=== PATIENT | male | born 1930 | race Caucasian/White ===

== ENCOUNTER 2016-09-10 07:25 | Emergency (ER) | payer OTHER, MEDICARE ==
[2016-09-10 07:52] LABS: ABSOLUTE EOSINOPHILS # (AUTO) 0.3 10^3/uL (0.0-0.6); ABSOLUTE LYMPHOCYTES (AUTO) 1.1 10^3/uL (0.5-4.7); ABSOLUTE MONOCYTES (AUTO) 0.5 10^3/uL (0.1-1.4); ABSOLUTE NEUT (AUTO) 2.7 10^3/uL (1.7-8.2); BASOPHILS % (AUTO) 0.8 % (0-2); EOSINOPHILS % (AUTO) 6.3 % (0-6); HEMATOCRIT 38.7 % (37.9-51.0); HEMOGLOBIN 13.1 g/dL (13.5-17.0); HGB HCT DIFFERENCE 0.6; MEAN CORPUSCULAR HEMOGLOBIN 30.3 pg (27.0-33.4); MEAN CORPUSCULAR HGB CONC 33.9 g/dL (32.0-36.0); MEAN CORPUSCULAR VOLUME 90 fl (80-97); MONOCYTES % (AUTO) 9.9 % (3-13); RED BLOOD COUNT 4.32 10^6/uL (4.35-5.55); RED CELL DISTRIBUTION WIDTH 14.7 % (11.5-14.0); WHITE BLOOD COUNT 4.7 10^3/uL (4.0-10.5)
[2016-09-10 07:56] LABS: PROTHROMBIN TIME 13.2 SEC (11.4-15.4)
[2016-09-10 07:57] LABS: PARTIAL THROMBOPLASTIN TIME 26.5 SEC (23.5-35.8)
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
[2016-09-10 09:05] VITALS: BP 152/75
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
--- NOTE | 2016-09-10 10:47 | EKG REPORT ---
SEVERITY:- ABNORMAL ECG - VENTRICULAR-PACED COMPLEXES FIRST DEGREE AV BLOCK NONSPECIFIC IVCD WITH LAD LVH WITH SECONDARY REPOLARIZATION ABNORMALITY : Confirmed by: Bashir Correa 10-Sep-2016 10:46:34
[2016-09-10] MEDS ORDERED: LIDOCAINE 1%/EPINEPHRINE INJ 20 ML VIAL INJ ONE ×2 (14:07)
== END 2016-09-10 10:11 | disposition short-term general hospital (02) ==
LOC: ER 07:25
PROC: 0HQ0XZZ Repair Scalp Skin, External Approach (ICD-10-PCS; principal; 2016-09-10)
DX: S12.100A Unspecified displaced fracture of second cervical vertebra, initial encounter for closed fracture (principal); S81.811A Laceration without foreign body, right lower leg, initial encounter; S06.6X9A Traumatic subarachnoid hemorrhage with loss of consciousness of unspecified duration, initial encounter; R40.2412 Glasgow coma scale score 13-15, at arrival to emergency department; R51 Headache; V87.7XXA Person injured in collision between other specified motor vehicles (traffic), initial encounter
CPT/HCPCS: 36415; 70450; 71260; 72125; 74177; 85025; 85610; 85730; 93005; 93010; 99291

== ENCOUNTER 2017-06-22 14:29 | Emergency (ER) | payer OTHER, MEDICARE ==
--- NOTE | 2017-06-22 15:24 | ER Document Report ---
ED Medical Screen (RME) - General Chief Complaint: High Blood Pressure Stated Complaint: DIZZY,BLOOD PRESSURE ISSUES Time Seen by Provider: 06/22/17 14:44 Mode of Arrival: Ambulatory Information source: Patient Notes: 87-year-old male history of hypertension pacemaker presents with complaints of dizziness. Patient notes blood pressure has been elevated lately denies any chest pain shortness breath difficulty breathing I have greeted and performed a rapid initial assessment of this patient. A comprehensive ED assessment and evaluation of the patient, analysis of test results and completion of the medical decision making process will be conducted by additional ED providers. PHYSICAL EXAMINATION: GENERAL: Well-appearing, well-nourished and in no acute distress. HEAD: Atraumatic, normocephalic. EYES: Pupils equal round extraocular movements intact, conjunctiva are normal. Legally blind ENT: Nares patent difficulty hearing NECK: Normal range of motion LUNGS: No respiratory distress Musculoskeletal: Normal range of motion NEUROLOGICAL: Normal speech, normal gait. PSYCH: Normal mood, normal affect. SKIN: Warm, Dry, normal turgor, no rashes or lesions noted. TRAVEL OUTSIDE OF THE [place] IN LAST 30 DAYS: No - Related Data Allergies/Adverse Reactions: Sulfa (Sulfonamide Antibiotics) Allergy (Verified 06/22/17 14:43) Past Medical History - Social History Frequency of alcohol use: None Drug Abuse: None - Past Medical History Cardiac Medical History: Reports: Hx Coronary Artery Disease, Hx Heart Attack, Hx Hypertension Endocrine Medical History: Reports: Hx Diabetes Mellitus Type 2 Renal/ Medical History: Denies: Hx Peritoneal Dialysis Past Surgical History: Reports: Hx Cardiac Surgery - 4 stents placed, Hx Coronary Stent Physical Exam - Vital signs Vitals: Temp Pulse Resp BP Pulse Ox 97.9 F 55 L 16 172/80 H 99 06/22/17 14:38 06/22/17 14:38 06/22/17 14:38 06/22/17 14:38 06/22/17 14:38 Course - Vital Signs Vital signs: Temp Pulse Resp BP Pulse Ox 97.9 F 55 L 16 172/80 H 99 06/22/17 14:38 06/22/17 14:38 06/22/17 14:38 06/22/17 14:38 06/22/17 14:38
--- NOTE | 2017-06-22 16:11 | RADIOLOGY REPORT (SQ) ---
EXAM DESCRIPTION: CT HEAD WITHOUT COMPLETED DATE/TIME: 06/22/2017 3:59 pm REASON FOR STUDY: htn dizziness on eliquis COMPARISON: 09/10/2016. TECHNIQUE: Axial images acquired through the brain without intravenous contrast. Images reviewed wi th bone, brain and subdural windows. Images stored on PACS. All CT scanners at this facility use dose modulation, iterative reconstruction, and/or weight based d osing when appropriate to reduce radiation dose to as low as reasonably achievable (ALARA). [facility]: Dose Right [facility]: CareDose [facility]: Dose Right [facility]: Teradose 4D [facility]: Multigig RADIATION DOSE: CT Rad equipment meets quality standard of care and radiation dose reduction techniq ues were employed. CTDIvol: 64.6 mGy. DLP: 1163 mGy-cm. mGy. LIMITATIONS: None. FINDINGS: VENTRICLES: Normal size and contour. CEREBRUM: No masses. No hemorrhage. No midline shift. No evidence for acute infarction. Normal gra y/white matter differentiation. No areas of low density in the white matter. CEREBELLUM: No masses. No hemorrhage. No alteration of density. No evidence for acute infarction. EXTRAAXIAL SPACES: No fluid collections. No masses. ORBITS AND GLOBE: No intra- or extraconal masses. Normal contour of globe without masses. CALVARIUM: No fracture. PARANASAL SINUSES: No fluid or mucosal thickening. SOFT TISSUES: No mass or hematoma. OTHER: No other significant finding. IMPRESSION: NORMAL BRAIN CT WITHOUT CONTRAST. EVIDENCE OF ACUTE STROKE: NO. COMMENT: Quality ID # 436: Final reports with documentation of one or more dose reduction techniques (e.g., Automated exposure control, adjustment of the mA and/or kV according to patient size, use of iterative reconstruction technique) TECHNICAL DOCUMENTATION: JOB ID: [id number] [employer]- All Rights Reserved Reading location - IP/workstation name: [email or web address]
[2017-06-22 16:21] LABS: ABSOLUTE EOSINOPHILS # (AUTO) 0.3 10^3/uL (0.0-0.6); ABSOLUTE LYMPHOCYTES (AUTO) 1.2 10^3/uL (0.5-4.7); ABSOLUTE MONOCYTES (AUTO) 0.5 10^3/uL (0.1-1.4); ABSOLUTE NEUT (AUTO) 2.9 10^3/uL (1.7-8.2); BASOPHILS % (AUTO) 0.7 % (0-2); EOSINOPHILS % (AUTO) 5.3 % (0-6); HEMOGLOBIN 14.1 g/dL (13.5-17.0); LYMPHOCYTES % (AUTO) 24.4 % (13-45); MEAN CORPUSCULAR HEMOGLOBIN 29.9 pg (27.0-33.4); MEAN CORPUSCULAR HGB CONC 33.7 g/dL (32.0-36.0); MEAN CORPUSCULAR VOLUME 89 fl (80-97); MONOCYTES % (AUTO) 9.9 % (3-13); PLATELET COUNT 150 10^3/uL (150-450); RED BLOOD COUNT 4.72 10^6/uL (4.35-5.55); SEGMENTED NEUTROPHILS % (AUTO) 59.7 % (42-78); TOTAL CELLS COUNTED % (AUTO) 100 %; WHITE BLOOD COUNT 4.9 10^3/uL (4.0-10.5)
--- NOTE | 2017-06-22 16:24 | RADIOLOGY REPORT (SQ) ---
EXAM DESCRIPTION: CHEST SINGLE VIEW COMPLETED DATE/TIME: 06/22/2017 4:07 pm REASON FOR STUDY: dizzy COMPARISON: CT dated 09/10/2016. Chest x-ray dated 06/11/2015. EXAM PARAMETERS: NUMBER OF VIEWS: One view. TECHNIQUE: Single frontal radiographic view of the chest acquired. RADIATION DOSE: NA LIMITATIONS: None. FINDINGS: LUNGS AND PLEURA: Chronic elevation of the left hemidiaphragm. No opacities, masses or pn eumothorax. No pleural effusion. MEDIASTINUM AND HILAR STRUCTURES: No masses. Contour normal. HEART AND VASCULAR STRUCTURES: Heart normal in size. Normal vasculature. BONES: No acute findings. Degenerative changes in the shoulders. HARDWARE: Pacemaker. Coronary artery stent. OTHER: No other significant finding. IMPRESSION: NO ACUTE RADIOGRAPHIC FINDING IN THE CHEST. TECHNICAL DOCUMENTATION: JOB ID: [id number] [employer]- All Rights Reserved Reading location - IP/workstation name: [email or web address]
[2017-06-22 16:34] LABS: ALANINE AMINOTRANSFERASE 27 U/L (21-72); ALKALINE PHOSPHATASE 66 U/L (38-126); ANION GAP 8 (5-19); ASPARTATE AMINO TRANSFERASE 18 U/L (17-59); BILIRUBIN,DIRECT 0.4 mg/dL (0.0-0.4); BILIRUBIN,TOTAL 0.7 mg/dL (0.2-1.3); BLOOD UREA NITROGEN 17 mg/dL (7-20); CALCIUM 9.6 mg/dL (8.4-10.2); CARBON DIOXIDE 30 mmol/L (22-30); CHLORIDE 103 mmol/L (98-107); CREATINE KINASE 29 U/L (55-170); GLUCOSE 106 mg/dL (75-110); SODIUM 141.4 mmol/L (137-145); TOTAL PROTEIN 6.6 g/dL (6.3-8.2)
[2017-06-22 16:47] LABS: CREATINE KINASE MB 1.41 ng/mL (<4.55); TROPONIN I < 0.012 ng/mL
[2017-06-22] MEDS ORDERED: MECLIZINE HCL 25 MG TABLET PO ONE (18:31)
--- NOTE | 2017-06-22 18:32 | ER Document Report ---
ED General - General Chief Complaint: High Blood Pressure Stated Complaint: DIZZY,BLOOD PRESSURE ISSUES Time Seen by Provider: 06/22/17 14:44 Mode of Arrival: Ambulatory TRAVEL OUTSIDE OF THE [place] IN LAST 30 DAYS: No - HPI Patient complains to provider of: Dizziness elevated blood pressure Notes: Patient coming in for transient today feeling unwell becoming dizzy states after which he took his blood pressure which is elevated with systolics in the 190 [facility] for further evaluation. Patient resting company upon my evaluation states currently he is a symptomatic. Denies any fevers chills nausea vomiting chest pain abdominal pain. Patient states they have prior to arrival he did feel normal. Patient states compliance with his blood pressure medication. - Related Data Allergies/Adverse Reactions: Sulfa (Sulfonamide Antibiotics) Allergy (Verified 06/22/17 14:43) Past Medical History - General Information source: Patient - Social History Smoking Status: Never Smoker Frequency of alcohol use: None Drug Abuse: None Family History: Reviewed & Not Pertinent Patient has suicidal ideation: No Patient has homicidal ideation: No - Past Medical History Cardiac Medical History: Reports: Hx Coronary Artery Disease, Hx Heart Attack, Hx Hypertension Endocrine Medical History: Reports: Hx Diabetes Mellitus Type 2 Renal/ Medical History: Denies: Hx Peritoneal Dialysis Past Surgical History: Reports: Hx Cardiac Surgery - 4 stents placed, pacemaker , Hx Coronary Stent Review of Systems - Review of Systems Constitutional: No symptoms reported EENT: No symptoms reported Cardiovascular: Dizziness - Feeling unwell Respiratory: No symptoms reported Gastrointestinal: No symptoms reported Genitourinary: No symptoms reported Male Genitourinary: No symptoms reported Musculoskeletal: No symptoms reported Skin: No symptoms reported Hematologic/Lymphatic: No symptoms reported Neurological/Psychological: No symptoms reported -: Yes All other systems reviewed and negative Physical Exam - Vital signs Vitals: Temp Pulse Resp BP Pulse Ox 97.9 F 55 L 16 172/80 H 99 06/22/17 14:38 06/22/17 14:38 06/22/17 14:38 06/22/17 14:38 06/22/17 14:38 Interpretation: Normal - General General appearance: Appears well, Alert - HEENT Head: Normocephalic, Atraumatic Eyes: Normal Pupils: PERRL - Respiratory Respiratory status: No respiratory distress Chest status: Nontender Breath sounds: Normal Chest palpation: Normal Notes: Pacemaker to the left upper chest - Cardiovascular Rhythm: Regular Heart sounds: Normal auscultation Murmur: No - Abdominal Inspection: Normal Distension: No distension Bowel sounds: Normal Tenderness: Nontender Organomegaly: No organomegaly - Back Back: Normal, Nontender - Extremities General upper extremity: Normal inspection, Nontender, Normal color, Normal ROM , Normal temperature General lower extremity: Normal inspection, Nontender, Normal color, Normal ROM , Normal temperature, Normal weight bearing. No: Erica's sign - Neurological Neuro grossly intact: Yes Cognition: Normal Orientation: AAOx4 [place] Coma Scale Eye Opening: Spontaneous [place] Coma Scale Verbal: Oriented [place] Coma Scale Motor: Obeys Commands [place] Coma Scale Total: 15 Speech: Normal Motor strength normal: LUE, RUE, LLE, RLE Sensory: Normal - Psychological Associated symptoms: Normal affect, Normal mood - Skin Skin Temperature: Warm Skin Moisture: Dry Skin Color: Normal Course - Re-evaluation Re-evalutation: 06/22/17 19:04 The patient has dizziness as the patient's dizziness is not suggestive of pulmonary embolus, cardiac ischemia, aortic dissection, or other serious etiology. Given the extremely low risk of these diagnoses further testing and evaluation for these possibilities does not appear to be indicated at this time. The patient has been instructed to return if the symptoms worsen or change in any way. 06/22/17 19:05 Patient been asymptomatic during his time here in ER. Laboratory studies not reveal any critical pathology. Patient now states he had episodes of dizziness in the past and was on meclizine. Offered to get the patient meclizine here patient otherwise does not have any critical etiology will be discharged home. - Vital Signs Vital signs: Temp Pulse Resp BP Pulse Ox 97.9 F 55 L 16 172/80 H 99 06/22/17 14:38 06/22/17 14:38 06/22/17 14:38 06/22/17 14:38 06/22/17 14:38 - Laboratory Result Diagrams: 06/22/17 15:45 06/22/17 15:45 Laboratory results interpreted by me: 06/22/17 06/22/17 15:45 15:45 RDW 15.0 H Creatine Kinase 29 L Discharge - Discharge Clinical Impression: Transient dizziness Hypertension Qualifiers: Hypertension type: unspecified Qualified Code(s): I10 - Essential (primary) hypertension Condition: Good Disposition: HOME, SELF-CARE Instructions: Dizziness ([facility]), High Blood Pressure ([facility]) Additional Instructions: Your laboratory studies chest x-ray head CT did not show any critical pathology. Please follow-up with your primary care physician return to ER symptoms worsen. Your blood pressure does continue to be slightly elevated I would recommend following up with your primary care physician to see if he would like to adjust her medications he required no emergent adjustment of your medications at this time. I will give you a few tablets of Antivert or meclizine to help out with any nausea or any other dizziness that she may have. Prescriptions: Meclizine HCl [Antivert 25 mg Tablet] 25 mg PO TID PRN #21 tablet PRN Reason: Forms: Return to Work
--- NOTE | 2017-06-22 18:59 | EKG REPORT ---
SEVERITY:- ABNORMAL ECG - ATRIAL-SENSED VENTRICULAR-PACED RHYTHM : Confirmed by: Domenico Barba MD 22-Jun-2017 18:59:04
[2017-06-22 19:12] VITALS: BP 147/77
== END 2017-06-22 19:25 | disposition home or self-care (01) ==
LOC: ER 14:29
DX: I10 Essential (primary) hypertension (principal); Z79.899 Other long term (current) drug therapy; R42 Dizziness and giddiness; I25.10 Atherosclerotic heart disease of native coronary artery without angina pectoris; I25.2 Old myocardial infarction; E11.9 Type 2 diabetes mellitus without complications; Z95.5 Presence of coronary angioplasty implant and graft; Z95.0 Presence of cardiac pacemaker; Z88.2 Allergy status to sulfonamides
CPT/HCPCS: 36415; 70450; 71045; 80053; 82550; 82553; 84484; 85025; 93005; 93010; 99285

== ENCOUNTER 2018-01-17 12:46 | Emergency (ER) | payer OTHER, MEDICARE ==
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
[2018-01-17 16:33] VITALS: BP 164/75
--- NOTE | 2018-01-17 18:16 | EKG REPORT ---
SEVERITY:- ABNORMAL ECG - ATRIAL-SENSED VENTRICULAR-PACED RHYTHM : Confirmed by: Diana Larios MD 17-Jan-2018 18:15:59
== END 2018-01-17 16:18 | disposition home or self-care (01) ==
LOC: ER 12:46
DX: M54.2 Cervicalgia (principal); M54.5 Low back pain; V59.50XA Passenger in pick-up truck or van injured in collision with unspecified motor vehicles in traffic accident, initial encounter; I10 Essential (primary) hypertension; Z95.0 Presence of cardiac pacemaker; Z90.49 Acquired absence of other specified parts of digestive tract; Z88.2 Allergy status to sulfonamides; I25.2 Old myocardial infarction
CPT/HCPCS: 70450; 71045; 72125; 72128; 72131; 87493; 93005; 93010; 99285

== ENCOUNTER 2019-09-20 11:22 | Emergency (ER) | payer OTHER, MEDICARE ==
--- NOTE | 2019-09-20 12:26 | ER Document Report ---
ED Medical Screen (RME) - General Chief Complaint: Abscess Stated Complaint: WOUND CHECK Time Seen by Provider: 09/20/19 12:25 Mode of Arrival: Ambulatory Information source: Patient Notes: 89-year-old male presented to ED for an abscess on his buttocks. He states he has had sores on both buttocks for about a year and that bubble developed about 6 months ago and they have been trying to clear that but they have not been able to so the [facility] sent him over to the hospital to have this treated in the emergency room. He is alert oriented respirations regular and unlabored speaking in full sentences. He is mildly hard of hearing but he is able to answer all questions appropriately. I have greeted and performed a rapid initial assessment of this patient. A comprehensive ED assessment and evaluation of the patient, analysis of test results and completion of medical decision making process will be conducted by an additional ED providers. TRAVEL OUTSIDE OF THE [place] IN LAST 30 DAYS: No - Related Data Allergies/Adverse Reactions: Penicillins Allergy (Verified 09/20/19 12:22) Sulfa (Sulfonamide Antibiotics) Allergy (Verified 09/20/19 12:22) Past Medical History - Past Medical History Cardiac Medical History: Reports: Hx Coronary Artery Disease, Hx Heart Attack, Hx Hypertension Endocrine Medical History: Reports: Hx Diabetes Mellitus Type 2 Renal/ Medical History: Denies: Hx Peritoneal Dialysis Past Surgical History: Reports: Hx Cardiac Surgery - 4 stents placed, pacemaker, Hx Coronary Stent Physical Exam - Vital signs Vitals: Temp Pulse Resp BP Pulse Ox 98.0 F 70 19 95/56 L 98 09/20/19 11:30 09/20/19 11:30 09/20/19 11:09/20/19 11:30 09/20/19 11:30 Course - Vital Signs Vital signs: Temp Pulse Resp BP Pulse Ox 98.0 F 70 19 95/56 L 98 09/20/19 11:30 09/20/19 11:30 09/20/19 11:30 09/20/19 11:30 09/20/19 11:30
--- NOTE | 2019-09-20 14:13 | ER Document Report ---
ED General - General Chief Complaint: Abscess Stated Complaint: WOUND CHECK Time Seen by Provider: 09/20/19 12:25 Mode of Arrival: Ambulatory Notes: 89-year-old man presents to the emergency department with a complaint of an area on his bottom which has been giving him difficulties for an extended period he has been seen as an outpatient and started on a steroid cream. He states that he was told not to use it though not and there is no breakdown of skin at this time. He complains of pain and discomfort in the area. TRAVEL OUTSIDE OF THE [place] IN LAST 30 DAYS: No - Related Data Allergies/Adverse Reactions: Penicillins Allergy (Verified 09/20/19 12:22) Sulfa (Sulfonamide Antibiotics) Allergy (Verified 09/20/19 12:22) Past Medical History - General Information source: Patient - Social History Smoking Status: Former Smoker Chew tobacco use (# tins/day): No Frequency of alcohol use: None Drug Abuse: None Family History: Reviewed & Not Pertinent Patient has homicidal ideation: No - Past Medical History Cardiac Medical History: Reports: Hx Coronary Artery Disease, Hx Heart Attack, Hx Hypertension Endocrine Medical History: Reports: Hx Diabetes Mellitus Type 2 Renal/ Medical History: Denies: Hx Peritoneal Dialysis Past Surgical History: Reports: Hx Cardiac Surgery - 4 stents placed, pacemaker, Hx Coronary Stent Review of Systems - Review of Systems Notes: Constitutional: Negative for fever. HENT: Negative for sore throat. Eyes: Negative for visual changes. Cardiovascular: Negative for chest pain. Respiratory: Negative for shortness of breath. Gastrointestinal: Negative for abdominal pain, vomiting or diarrhea. Genitourinary: Negative for dysuria. Musculoskeletal: Negative for back pain. Skin: + Dry skin, + tenderness buttock region Neurological: Negative for headaches, weakness or numbness. 10 point ROS negative except as marked above and in HPI. Physical Exam - Vital signs Vitals: Temp Pulse Resp BP Pulse Ox 98.0 F 70 19 95/56 L 98 09/20/19 11:30 09/20/19 11:30 09/20/19 11:30 09/20/19 11:30 09/20/19 11:30 - Notes Notes: PHYSICAL EXAMINATION: Physical Exam: General: Frail elderly man in no acute distress HEENT: NC/AT, pupils equal round and reactive to light, MM moist,nares clear, oropharynx clear, airway patent Neck: supple, no adenopathy, no masses. Good range of motion Lungs: clear, no wheezing, no rales no rhonchi CVS: Regular rate and rhythm no murmur gallop or rub Abdomen: Soft, active, nontender, no masses, no hepatosplenomegaly Ext: No edema, clubbing or cyanosis. Neuro: Alert and responsive, moving all 4 extremities on command, cranial nerves intact, no focal findings Skin: Skin is intact in the buttock region, decreased musculature and thin bony area. Dry skin with some exfoliative change, no breakdown PSYCH: Normal mood, normal affect. Course - Vital Signs Vital signs: Temp Pulse Resp BP Pulse Ox 98.0 F 70 19 95/56 L 98 09/20/19 12:23 09/20/19 11:30 09/20/19 11:30 09/20/19 11:30 09/20/19 11:30 Discharge - Discharge Clinical Impression: Sacral pain, Dry skin dermatitis Condition: Good Disposition: HOME, SELF-CARE Additional Instructions: You are seen in the emergency department today and diagnosed with pain in the sacral area with dry skin dermatitis. It is suggested that you use Eucerin plus topical lotion twice daily. Use a cushion to protect the bony area from further inflammation. You may use Tylenol or ibuprofen for pain. Please follow-up with your primary care doctor as needed Your symptoms are worsening or if you have other concerns you may return to the emergency department HOME CARE INSTRUCTIONS & INFORMATION: Thank you for choosing us for your medical needs. We hope you're satisfied with the care you received. After you leave, you must properly care for your problem and, at the same time, observe its progress. Any condition can change. Some illnesses can change rapidly over hours or days. If your condition worsens, return to the Emergency Department or see your physician promptly. ABOUT YOUR X-RAYS AND EKG'S: If you had an EKG or X-rays taken, they have been read by the Emergency Physician. The X-rays and EKG's will also be read by a Radiologist or Operations Planner within 24 hours. If discrepancies are noted, you will be notified by telephone. Please be certain the ED has a correct telephone number & address where you can be reached. Also, realize that some fractures or abnormalities do not show up on initial X-rays. If your symptoms continue, see your physician. ABOUT YOUR LABORATORY TEST: If you had laboratory tests, the results have been reviewed by the Emergency Physician. Some test results (for example cultures) may not be available for several days. You will be contacted if any test result shows you need additional treatment. Please be certain the ED has a correct telephone number and address where you can be reached. ABOUT YOUR MEDICATIONS: You will receive instructions on how to take your medicine on the prescription label you receive. Additional information may be provided by the Pharmacy. If you have questions afterwards, call the ED for clarification or further instructions. Some prescribed medications may cause drowsiness. Do not perform tasks such as driving a car or operating machinery without consulting your Pharmacist. If you feel you need a refill of pain medication, your condition will need re-evaluation. Please do not call for a refill of any medication. ABOUT YOUR SIGNATURE: Signature of this document acknowledges to followin. Understanding that you received emergency treatment and that you may be released before al medical problems are known or treated. Please be certain the ED has a correct phone number & address where you can be reached. 2. Acknowledgement that you will arrange for follow-up care as recommended. 3. Authorization for the Emergency Physician to provide information to your follow-up Physician in order to maximize your care. AT ANY TIME, IF YOUR SYMPTOMS CHANGE SIGNIFICANTLY OR WORSEN OR YOU DEVELOP NEW SYMPTOMS, RETURN TO THE EMERGENCY DEPARTMENT IMMEDIATELY FOR RE-EVALUATION. OUR GOAL IS TO PROVIDE EXCELLENT MEDICAL CARE! WE HOPE THAT WE HAVE MET YOUR EXPECTATIONS DURING YOUR EMERGENCY DEPARTMENT VISIT AND THAT YOU FEEL YOU HAVE RECEIVED EXCELLENT CARE!
[2019-09-20 14:46] VITALS: BP 113/62
== END 2019-09-20 14:46 | disposition home or self-care (01) ==
LOC: ER 11:22
DX: M53.3 Sacrococcygeal disorders, not elsewhere classified (principal); L30.8 Other specified dermatitis; L85.3 Xerosis cutis; Z87.891 Personal history of nicotine dependence; Z88.0 Allergy status to penicillin; Z88.2 Allergy status to sulfonamides; I25.10 Atherosclerotic heart disease of native coronary artery without angina pectoris; I25.2 Old myocardial infarction; I10 Essential (primary) hypertension; E11.9 Type 2 diabetes mellitus without complications
CPT/HCPCS: 99283

== ENCOUNTER 2019-10-26 14:40 | Emergency (ER) | payer OTHER, MEDICARE ==
--- NOTE | 2019-10-26 14:59 | ER Document Report ---
ED Medical Screen (RME) - General Chief Complaint: Constipation Stated Complaint: CONSTIPATION/DECUBITUS ULCER Time Seen by Provider: 10/26/19 14:45 Primary Care Provider: MYLES MURPHY [Primary Care Provider] - Follow up as needed Mode of Arrival: Wheelchair Information source: Patient Notes: 89-year-old male patient presenting to the emergency department with concern for possible decubitus ulcer and possible constipation. Patient denies any nausea, vomiting, fever or chills. His daughter reports that he has an open sore near the rectum. Patient appears well, nontoxic, alert, answering questions. I have greeted and performed a rapid initial assessment of this patient. A comprehensive ED assessment and evaluation of the patient, analysis of test results and completion of the medical decision making process will be conducted by additional ED providers. I have specifically instructed the patient or family members with the patient to immediately return to any nursing staff should anything change in the patient's condition or with their chief complaint. TRAVEL OUTSIDE OF THE [place] IN LAST 30 DAYS: No - Related Data Allergies/Adverse Reactions: Penicillins Allergy (Verified 09/20/19 12:22) Sulfa (Sulfonamide Antibiotics) Allergy (Verified 09/20/19 12:22) Past Medical History - Past Medical History Cardiac Medical History: Reports: Hx Coronary Artery Disease, Hx Heart Attack, Hx Hypertension Endocrine Medical History: Reports: Hx Diabetes Mellitus Type 2 Renal/ Medical History: Denies: Hx Peritoneal Dialysis Past Surgical History: Reports: Hx Cardiac Surgery - 4 stents placed, pacemaker, Hx Coronary Stent Physical Exam - Vital signs Vitals: Temp Pulse Resp BP Pulse Ox 98.7 F 70 18 94/53 L 99 10/26/19 14:43 10/26/19 14:43 10/26/19 14:43 10/26/19 14:43 10/26/19 14:43 Course - Vital Signs Vital signs: Temp Pulse Resp BP Pulse Ox 98.7 F 70 18 94/53 L 99 10/26/19 14:43 10/26/19 14:43 10/26/19 14:43 10/26/19 14:43 10/26/19 14:43 Doctor's Discharge - Discharge Referrals: [facility] [Primary Care Provider] - Follow up as needed
--- NOTE | 2019-10-26 15:38 | RADIOLOGY REPORT (SQ) ---
EXAM DESCRIPTION: KUB/ABDOMEN (SINGLE VIEW) IMAGES COMPLETED DATE/TIME: 10/26/2019 3:28 pm REASON FOR STUDY: eval for constipation COMPARISON: None. NUMBER OF VIEWS: One view. TECHNIQUE: Supine radiographic image of the abdomen acquired. LIMITATIONS: None. FINDINGS: BOWEL GAS PATTERN: Normal bowel gas pattern. No dilated loops. CONSTIPATION: No CALCIFICATIONS: No suspicious calcifications. SOFT TISSUES: No gross mass or suggestion of organomegaly. HARDWARE: None in the abdomen. BONES: Diffuse degenerative disc disease. OTHER: No other significant finding. IMPRESSION: NO RADIOGRAPHIC EVIDENCE FOR ACUTE ABDOMINAL DISEASE. No constipation. TECHNICAL DOCUMENTATION: JOB ID: [id number] [employer]- All Rights Reserved Reading location - IP/workstation name: [email or web address]
[2019-10-26 15:53] LABS: ABSOLUTE EOSINOPHILS # (AUTO) 0.2 10^3/uL (0.0-0.6); ABSOLUTE LYMPHOCYTES (AUTO) 1.1 10^3/uL (0.5-4.7); ABSOLUTE MONOCYTES (AUTO) 0.4 10^3/uL (0.1-1.4); ABSOLUTE NEUT (AUTO) 4.2 10^3/uL (1.7-8.2); BASOPHILS % (AUTO) 0.8 % (0-2); EOSINOPHILS % (AUTO) 3.9 % (0-6); HEMATOCRIT 37.6 % (37.9-51.0); HEMOGLOBIN 12.9 g/dL (13.5-17.0); LYMPHOCYTES % (AUTO) 18.3 % (13-45); MEAN CORPUSCULAR HEMOGLOBIN 32.9 pg (27.0-33.4); MEAN CORPUSCULAR HGB CONC 34.2 g/dL (32.0-36.0); MEAN CORPUSCULAR VOLUME 96 fl (80-97); MONOCYTES % (AUTO) 6.9 % (3-13); PLATELET COUNT 174 10^3/uL (150-450); SEGMENTED NEUTROPHILS % (AUTO) 70.1 % (42-78); TOTAL CELLS COUNTED % (AUTO) 100 %; WHITE BLOOD COUNT 5.9 10^3/uL (4.0-10.5)
[2019-10-26 16:34] LABS: APPEARANCE,URINE SLIGHTLY-CLOUDY; BILIRUBIN,URINE NEGATIVE (NEGATIVE); COLOR,URINE AMBER; GLUCOSE, URINE NEGATIVE (NEGATIVE); KETONES,URINE NEGATIVE (NEGATIVE); LEUKOCYTE ESTERASE,URINE NEGATIVE (NEGATIVE); NITRITE,URINE NEGATIVE (NEGATIVE); PROTEIN,URINE 30 mg/dL (NEGATIVE); URINE SPECIFIC GRAVITY 1.024
[2019-10-26 18:01] LABS: ALBUMIN 3.8 g/dL (3.5-5.0); ALKALINE PHOSPHATASE 61 U/L (38-126); ANION GAP 7 (5-19); ASPARTATE AMINO TRANSFERASE 21 U/L (17-59); BILIRUBIN,DIRECT 0.1 mg/dL (0.0-0.4); BILIRUBIN,TOTAL 0.9 mg/dL (0.2-1.3); BLOOD UREA NITROGEN 21 mg/dL (7-20); CALCIUM 9.9 mg/dL (8.4-10.2); CARBON DIOXIDE 24 mmol/L (22-30); CHLORIDE 106 mmol/L (98-107); GLUCOSE 146 mg/dL (75-110); POTASSIUM 3.9 mmol/L (3.6-5.0); TOTAL PROTEIN 6.4 g/dL (6.3-8.2)
--- NOTE | 2019-10-26 19:18 | ER Document Report ---
ED General - General Chief Complaint: Abscess Stated Complaint: CONSTIPATION/DECUBITUS ULCER Time Seen by Provider: 10/26/19 14:45 Primary Care Provider: KATHERINE,MYLES [Primary Care Provider] - Follow up as needed Mode of Arrival: Wheelchair TRAVEL OUTSIDE OF THE [place] IN LAST 30 DAYS: No - HPI Notes: Patient is an 89-year-old male who presents to the emergency department for evaluation of a few complaints. He has had a sore on his sacral area for about a year. He states that he became more concerned about it over the last several days because he felt "an obstruction" when he tried to move his bowels. The patient admits he has not been eating much over the last several days. He states he tried to have a bowel movement this morning and pushed more firmly. He states he felt a lump around his rectal area. He states he was able to push it back in. He denies any pain there. His daughter is also there, concerned about the wound on his sacral area that is now open. He said no fevers or chills. No nausea or vomiting. He is not dizzy. He has had no other changes in medications. He is actually been using steroid ointment on the wound. - Related Data Allergies/Adverse Reactions: Penicillins Allergy (Verified 09/20/19 12:22) Sulfa (Sulfonamide Antibiotics) Allergy (Verified 09/20/19 12:22) Home Medications: Atorvastatin. Metformin. Potassium Chloride. Tylenol. Lasix. Allopurinol. Carvedilol. Eliquis. Tamsulosin. Loratadine Past Medical History - General Information source: Patient, Relative - Social History Smoking Status: Never Smoker Family History: Reviewed & Not Pertinent - Past Medical History Cardiac Medical History: Reports: Hx Coronary Artery Disease, Hx Heart Attack, H x Hypercholesterolemia, Hx Hypertension Endocrine Medical History: Reports: Hx Diabetes Mellitus Type 2 Renal/ Medical History: Denies: Hx Peritoneal Dialysis Past Surgical History: Reports: Hx Cardiac Surgery - 4 stents placed, pacemaker, Hx Coronary Stent Review of Systems - Review of Systems Gastrointestinal: See HPI Skin: See HPI -: Yes All other systems reviewed and negative Physical Exam - Vital signs Vitals: Temp Pulse Resp BP Pulse Ox 98.7 F 70 18 94/53 L 99 10/26/19 14:43 10/26/19 14:43 10/26/19 14:43 10/26/19 14:43 10/26/19 14:43 - Notes Notes: There is a very pleasant 89-year-old male appears younger than her stated age, no acute distress. Head is normocephalic and atraumatic, pupils are equal and round. Oral mucosa is moist. Heart is regular rate and rhythm, lungs are clear station bilaterally. Abdomen soft, nontender, active bowel sounds. Extremities without cyanosis or clubbing. Examination of the sacral area yields an 8 x 10 cm area of erythema consistent with a stage I decubitus ulcer. On his left gluteal region, overlying the ischium, is a 1 x 2 cm open area consistent with an early stage II decubitus ulcer. He has a mild amount of abrasion noted from frequent bandage changes. Rectal exam was performed with KATJA Mcintosh, present in the room. He has what appears to be normal rectal tone, but digital rectal exam is not performed. He has a small skin tag consistent with a minor external hemorrhoid. Otherwise no signs of bleeding or significant fissure is noted. Course - Re-evaluation Re-evalutation: 10/26/19 19:15 Patient presents to the emergency department for evaluation. He had laboratory investigations and abdominal imaging. Abdominal imaging failed to reveal any signs of obstruction or significant constipation. The patient has not been eating much, therefore he does not have to have a bowel movement. His daughter states that he becomes obsessed with the idea of needing to have a bowel movement every day. I explained to him that this was not necessary, decreased oral intake would lead to decreased defecation, the patient seems satisfied with that answer. I did do a visual inspection of the patient's rectum. He has a small skin tag and appears to have good rectal tone. I did not do a digital rectal exam, as I am concerned he may have had a small rectal prolapse versus prolapsed hemorrhoid. I do not see any active signs of bleeding, and do not want to cause the patient more discomfort. I encouraged him to not try to strain to have a bowel movement if he does not need to have one. He voiced understanding. Otherwise he was given appropriate wound care instructions for his sacral decubitus ulcer. He is absolutely not to add steroid treatment to this. He is to return to the ED with worsening. 10/26/19 19:19 Please note, when I was notified that the patient's blood pressure was borderline low, I placed an order for him to be put on the monitor. The patient is not dizzy. He has no concerns of weakness. He has a normal renal function. He is not revealing any signs of infection on exam. I am not inclined to place him on a monitor or do any further intervention for this blood pressure at this time. - Vital Signs Vital signs: Temp Pulse Resp BP Pulse Ox 98.7 F 70 18 94/53 L 99 10/26/19 14:43 10/26/19 14:43 10/26/19 14:43 10/26/19 14:43 10/26/19 14:43 - Laboratory Result Diagrams: 10/26/19 15:14 10/26/19 14:54 Laboratory results interpreted by me: 10/26/19 10/26/19 10/26/19 14:54 15:14 16:05 RBC 3.90 L Hgb 12.9 L Hct 37.6 L RDW 15.0 H BUN 21 H Glucose 146 H Urine Protein 30 H Urine Urobilinogen 2.0 H Discharge - Discharge Clinical Impression: Sacral decubitus ulcer Qualifiers: Pressure injury stage: stage 2 Qualified Code(s): L89.152 - Pressure ulcer of sacral region, stage 2 Condition: Stable Disposition: HOME, SELF-CARE Instructions: Decubitus Ulcer ([facility]) Additional Instructions: You are not constipated. There is no signs of significant constipation. If you do not eat much, you will not have to have bowel movements. Please do not strain to try to pass her bowel movements. Otherwise, wound care is instructed in regards to your sacral decubitus ulcer. Please try to relieve pressure on this area as much as possible. Return to the emergency department for worsening or new concerning symptoms. Otherwise, follow-up with primary care this week. Referrals: [facility] [Primary Care Provider] - Follow up as needed
[2019-10-26 19:39] VITALS: BP 127/50
== END 2019-10-26 19:49 | disposition home or self-care (01) ==
LOC: ER 14:40
DX: L89.152 Pressure ulcer of sacral region, stage 2 (principal); K59.00 Constipation, unspecified; Z88.0 Allergy status to penicillin; Z88.2 Allergy status to sulfonamides; Z79.84 Long term (current) use of oral hypoglycemic drugs; Z79.899 Other long term (current) drug therapy; Z79.01 Long term (current) use of anticoagulants
CPT/HCPCS: 36415; 74018; 80053; 81001; 85025; 87086; 99283

== ENCOUNTER 2020-03-27 23:10 | Emergency (ER) | payer OTHER, MEDICARE ==
[2020-03-27 23:24] VITALS: BP 124/59
== END 2020-03-27 23:43 | disposition left against medical advice (07) ==
LOC: ER 23:10
DX: Z53.21 Procedure and treatment not carried out due to patient leaving prior to being seen by health care provider (principal)

== ENCOUNTER 2020-04-16 06:55 | Emergency (ER) | payer OTHER, MEDICARE ==
[2020-04-16 11:13] LABS: ABSOLUTE EOSINOPHILS # (AUTO) 0.1 10^3/uL (0.0-0.6); ABSOLUTE LYMPHOCYTES (AUTO) 0.4 10^3/uL (0.5-4.7); ABSOLUTE MONOCYTES (AUTO) 0.3 10^3/uL (0.1-1.4); ABSOLUTE NEUT (AUTO) 3.5 10^3/uL (1.7-8.2); BASOPHILS % (AUTO) 0.5 % (0-2); EOSINOPHILS % (AUTO) 2.5 % (0-6); HEMATOCRIT 34.7 % (37.9-51.0); LYMPHOCYTES % (AUTO) 9.4 % (13-45); MEAN CORPUSCULAR HEMOGLOBIN 32.5 pg (27.0-33.4); MEAN CORPUSCULAR HGB CONC 34.6 g/dL (32.0-36.0); MEAN CORPUSCULAR VOLUME 94 fl (80-97); MONOCYTES % (AUTO) 7.9 % (3-13); PLATELET COUNT 123 10^3/uL (150-450); RED BLOOD COUNT 3.69 10^6/uL (4.35-5.55); RED CELL DISTRIBUTION WIDTH 15.4 % (11.5-14.0); SEGMENTED NEUTROPHILS % (AUTO) 79.7 % (42-78); TOTAL CELLS COUNTED % (AUTO) 100 %; WHITE BLOOD COUNT 4.4 10^3/uL (4.0-10.5)
[2020-04-16 11:29] LABS: ALBUMIN 3.4 g/dL (3.5-5.0); ALKALINE PHOSPHATASE 68 U/L (38-126); ASPARTATE AMINO TRANSFERASE 22 U/L (17-59); BILIRUBIN,DIRECT 0.2 mg/dL (0.0-0.4); BILIRUBIN,TOTAL 1.7 mg/dL (0.2-1.3); BLOOD UREA NITROGEN 18 mg/dL (7-20); CALCIUM 9.2 mg/dL (8.4-10.2); GLUCOSE 117 mg/dL (75-110); POTASSIUM 4.2 mmol/L (3.6-5.0); TOTAL PROTEIN 5.9 g/dL (6.3-8.2)
[2020-04-16 11:34] LABS: ANION GAP 6 (5-19); CARBON DIOXIDE 29 mmol/L (22-30); CHLORIDE 103 mmol/L (98-107)
--- NOTE | 2020-04-16 11:48 | RADIOLOGY REPORT (SQ) ---
EXAM DESCRIPTION: KUB/ABDOMEN (SINGLE VIEW) IMAGES COMPLETED DATE/TIME: 04/16/2020 11:19 am REASON FOR STUDY: constipation COMPARISON: None. NUMBER OF VIEWS: One view. TECHNIQUE: Supine radiographic image of the abdomen acquired. LIMITATIONS: None. FINDINGS: BOWEL GAS PATTERN: Abundant gas and fecal material throughout nondilated colon. CALCIFICATIONS: No suspicious calcifications. SOFT TISSUES: No gross mass or suggestion of organomegaly. HARDWARE: None in the abdomen. BONES: No acute fracture. No worrisome bone lesions. OTHER: No other significant finding. IMPRESSION: Mild fecal retention. TECHNICAL DOCUMENTATION: JOB ID: [id number] 2010 [employer]- All Rights Reserved Reading location - IP/workstation name: [email or web address]
--- NOTE | 2020-04-16 11:51 | ER Document Report ---
ED GI/ - General Chief Complaint: Diarrhea Stated Complaint: DIARRHEA Time Seen by Provider: 04/16/20 11:08 [facility]: [facility] [[facility]] - Follow up as needed Mode of Arrival: Medic Information source: Patient Notes: 89-year-old male presents to the emergency department with a history of constipation and also prior history of impaction. He has been taking multiple [id number] bowel stimulants apparently had explosive diarrhea/bowel movements 2 days ago at home and is now having some diarrheal episodes. Patient's daughter states that he is scheduled appointment with GI but that he needs to have something else done. Patient states that he had had a bowel movement in 7 or 8days feels he needs something else to help his bowels. TRAVEL OUTSIDE OF THE [place] IN LAST 30 DAYS: No - Related Data Allergies/Adverse Reactions: Penicillins Allergy (Verified 09/20/19 12:22) Sulfa (Sulfonamide Antibiotics) Allergy (Verified 09/20/19 12:22) Home Medications: metformin, atorvastatin, omeprazole, allopurinol, KCL, flomax, coreg, loratadine, lasix, brimonidine gtt, dorolamide, latanoprost Past Medical History - Social History Smoking Status: Former Smoker Family History: Reviewed & Not Pertinent - Past Medical History Cardiac Medical History: Reports: Hx Coronary Artery Disease, Hx Heart Attack, Hx Hypercholesterolemia, Hx Hypertension Endocrine Medical History: Reports: Hx Diabetes Mellitus Type 2 Renal/ Medical History: Denies: Hx Peritoneal Dialysis Past Surgical History: Reports: Hx Cardiac Surgery - 4 stents placed, pacemaker, Hx Coronary Stent Review of Systems - Review of Systems Notes: Constitutional: Negative for fever. HENT: Negative for sore throat. Eyes: Negative for visual changes. Cardiovascular: Negative for chest pain. Respiratory: Negative for shortness of breath. Gastrointestinal: See HPI Genitourinary: Negative for dysuria. Musculoskeletal: Negative for back pain. Skin: Negative for rash. Neurological: Negative for headaches, weakness or numbness. 10 point ROS negative except as marked above and in HPI. Physical Exam - Vital signs Vitals: Temp Pulse Resp BP Pulse Ox 98.3 F 61 18 95/43 L 100 04/16/20 07:15 04/16/20 07:15 04/16/20 07:15 04/16/20 07:15 04/16/20 07:15 - Notes Notes: PHYSICAL EXAMINATION: Physical Exam: General: Elderly male in no acute distress HEENT: NC/AT, pupils equal round and reactive to light, MM moist,nares clear, oropharynx clear, airway patent Neck: supple, no adenopathy, no masses. Good range of motion Lungs: clear, no wheezing, no rales no rhonchi CVS: Regular rate and rhythm no murmur gallop or rub Abdomen: Soft, active, nontender, no masses, no hepatosplenomegaly Ext: No edema, clubbing or cyanosis. Neuro: Alert and responsive, moving all 4 extremities on command, cranial nerves intact, no focal findings Skin: Intact no open lesions, no rash Course - Re-evaluation Re-evalutation: 04/16/20 14:41 Patient with a long history of constipation and secondary GI related symptoms. Apparently seen by the [facility] fingernail sculpturer and no further evaluation was performed according to the daughter. She was told that if he had a cancer or some other significant pathology that no intervention would be performed because he is 89 years old. Patient has been taken [id number]-uvmkmuy laxative because he feels like there is a bubble in the rectal area that will come out. CT scan was performed on the abdomen and pelvis today with IV contrast only and the patient was noted to have proctocolitis circumferential thickening in the mucosa of the distal colon. You were treated with a course of antibiotics, Cipro 250 mg twice daily and Flagyl 500 mg twice a day for full 10 days. Also begin Colace 100 mg 1 tablet twice daily and Dulcolax 1 daily. He will follow- up with gastroenterology. - Vital Signs Vital signs: Temp Pulse Resp BP Pulse Ox 98.3 F 61 18 95/43 L 100 04/16/20 07:15 04/16/20 07:15 04/16/20 07:15 04/16/20 07:15 04/16/20 07:15 - Laboratory Results Result Diagrams: 04/16/20 11:00 04/16/20 11:00 Laboratory Results Interpreted: 04/16/20 04/16/20 04/16/20 11:00 11:00 12:02 RBC 3.69 L Hgb 12.0 L Hct 34.7 L RDW 15.4 H Plt Count 123 L Lymph % (Auto) 9.4 L Absolute Lymphs (auto) 0.4 L Seg Neutrophils % 79.7 H Glucose 117 H Total Bilirubin 1.7 H Total Protein 5.9 L Albumin 3.4 L Urine Ketones TRACE H Critical Laboratory Results Reviewed: No Critical Results - Radiology Results Radiology Results Interpreted: 04/16/20 14:49 K[facility] X-Ray 04/16/20 10:46 IMPRESSION: Mild fecal retention. Abdomen/Pelvis CT 04/16/20 11:48 IMPRESSION: Circumferential rectal wall thickening with surrounding inflammatory change suggestive of proctocolitis. Moderate stool in the colon which can be seen with constipation. No bowel obstruction. Critical Radiology Results Reviewed: No Critical Results Discharge - Discharge Clinical Impression: Proctocolitis Constipation Qualifiers: Constipation type: unspecified constipation type Qualified Code(s): K59.00 - Constipation, unspecified Condition: Good Disposition: HOME, SELF-CARE Instructions: Constipation (OM) Additional Instructions: You were seen in the emergency department with history of bowel difficulties constipation and also irritation. You have been given a prescription for antibi otics Cipro 250 mg twice daily and Flagyl 500 mg twice daily for 10-day course. Please continue to push fluids, increase fiber, and begin Colace 100 mg 1 tablet twice daily and Senokot 1 dose daily. Please continue to increase your fluid intake while taking these medications. If your symptoms are getting worse or you have other concerns you may return to the emergency department for further evaluation and treatment Follow-up with the fingernail sculpturer,Dr Gonzalez, information is listed. HOME CARE INSTRUCTIONS & INFORMATION: Thank you for choosing us for your medical needs. We hope you're satisfied with the care you received. After you leave, you must properly care for your problem and, at the same time, observe its progress. Any condition can change. Some illnesses can change rapidly over hours or days. If your condition worsens, return to the Emergency Department or see your physician promptly. ABOUT YOUR X-RAYS AND EKG'S: If you had an EKG or X-rays taken, they have been read by the Emergency Physician. The X-rays and EKG's will also be read by a Radiologist or Publication Editor within 24 hours. If discrepancies are noted, you will be notified by telephone. Please be certain the ED has a correct telephone number & address where you can be reached. Also, realize that some fractures or abnormalities do not show up on initial X-rays. If your symptoms continue, see your physician. ABOUT YOUR LABORATORY TEST: If you had laboratory tests, the results have been reviewed by the Emergency Physician. Some test results (for example cultures) may not be available for several days. You will be contacted if any test result shows you need additional treatment. Please be certain the ED has a correct telephone number and address where you can be reached. ABOUT YOUR MEDICATIONS: You will receive instructions on how to take your medicine on the prescription label you receive. Additional information may be provided by the Pharmacy. If you have questions afterwards, call the ED for clarification or further instructions. Some prescribed medications may cause dr [email or web address]. Do not perform tasks such as driving a car or operating machinery without consulting your Pharmacist. If you feel you need a refill of pain medication, your condition will need re-evaluation. Please do not call for a refill of any medication. ABOUT YOUR SIGNATURE: Signature of this document acknowledges to followin. Understanding that you received emergency treatment and that you may be released before al medical problems are known or treated. Please be certain the ED has a correct phone number & address where you can be reached. 2. Acknowledgement that you will arrange for follow-up care as recommended. 3. Authorization for the Emergency Physician to provide information to your follow-up Physician in order to maximize your care. AT ANY TIME, IF YOUR SYMPTOMS CHANGE SIGNIFICANTLY OR WORSEN OR YOU DEVELOP NEW SYMPTOMS, RETURN TO THE EMERGENCY DEPARTMENT IMMEDIATELY FOR RE-EVALUATION. OUR GOAL IS TO PROVIDE EXCELLENT MEDICAL CARE! WE HOPE THAT WE HAVE MET YOUR EXPECTATIONS DURING YOUR EMERGENCY DEPARTMENT VISIT AND THAT YOU FEEL YOU HAVE RECEIVED EXCELLENT CARE! Prescriptions: Ciprofloxacin HCl 250 mg PO BID #20 tablet Metronidazole [Flagyl 500 mg Tablet] 500 mg PO BID #20 tablet Referrals: [facility] [Primary Care Provider] - Follow up as needed SHAMA GONZALEZ MD [ACTIVE STAFF] - Follow up as needed
[2020-04-16 12:36] LABS: APPEARANCE,URINE CLEAR; BILIRUBIN,URINE NEGATIVE (NEGATIVE); COLOR,URINE YELLOW; GLUCOSE, URINE NEGATIVE (NEGATIVE); KETONES,URINE TRACE mg/dL (NEGATIVE); LEUKOCYTE ESTERASE,URINE NEGATIVE (NEGATIVE); NITRITE,URINE NEGATIVE (NEGATIVE); PROTEIN,URINE NEGATIVE (NEGATIVE); URINE SPECIFIC GRAVITY 1.013; UROBILINOGEN,URINE NEGATIVE mg/dL (<2.0)
--- NOTE | 2020-04-16 13:01 | RADIOLOGY REPORT (SQ) ---
EXAM DESCRIPTION: CT ABD/PELVIS WITH IV ONLY IMAGES COMPLETED DATE/TIME: 04/16/2020 11:30 am REASON FOR STUDY: Abdominal pain. Prior cholecystectomy. COMPARISON: Abdomen [facility] same date. CT chest, abdomen and pelvis 09/10/2016 TECHNIQUE: CT scan of the abdomen and pelvis performed using helical scanning technique with dynamic intravenous contrast injection. No oral contrast. Images reviewed with lung, soft tissue, and bone windows. Reconstructed coronal and sagittal MPR images reviewed. Delayed images for evaluation of the urinary system also acquired. All images stored on PACS. All CT scanners at this facility use dose modulation, iterative reconstruction, and/or weight based d osing when appropriate to reduce radiation dose to as low as reasonably achievable (ALARA). [facility]: Dose Right [facility]: CareDose [facility]: Dose Right [facility]: Teradose 4D [facility]: [place] CONTRAST TYPE AND DOSE: contrast/concentration: Isovue 350.00 mmol/ml; Total Contrast Delivered: 100 .0 ml; Total Saline Delivered: 38.8 ml RENAL FUNCTION: GFR > 60. RADIATION DOSE: CT Rad equipment meets quality standard of care and radiation dose reduction techniq ues were employed. CTDIvol: 15.1 - 18.6 mGy. DLP: 1810 mGy-cm.. LIMITATIONS: Motion obscures some detail. FINDINGS: LOWER CHEST: No significant findings. No nodules or infiltrates. LIVER: Normal size. No masses. No dilated ducts. SPLEEN: Normal size. No focal lesions. PANCREAS: No masses. No significant calcifications. No adjacent inflammation or peripancreatic fluid collections. Pancreatic duct not dilated. GALLBLADDER: Surgically absent. ADRENAL GLANDS: No significant masses or asymmetry. RIGHT KIDNEY AND URETER: No solid masses. Nonobstructing renal calculi. No hydronephrosis or hydr oureter. LEFT KIDNEY AND URETER: No solid masses. No significant calcifications. No hydronephrosis or hydr oureter. AORTA AND VESSELS: No aneurysm. No dissection. Renal arteries, SMA, celiac without stenosis. RETROPERITONEUM: No retroperitoneal adenopathy, hemorrhage or masses. BOWEL AND PERITONEAL CAVITY: There is a moderate amount of stool throughout the colon and rectum. Ci rcumferential rectal wall thickening with surrounding inflammatory change. No focal colonic mass. N o bowel obstruction. No ascites or pneumoperitoneum. APPENDIX: Surgically absent. PELVIS: No mass. No free fluid. Normal bladder. ABDOMINAL WALL: No masses. No hernias. BONES: No significant or acute findings. OTHER: No other significant finding. IMPRESSION: Circumferential rectal wall thickening with surrounding inflammatory change suggestive o f proctocolitis. Moderate stool in the colon which can be seen with constipation. No bowel obstruct ion. TECHNICAL DOCUMENTATION: JOB ID: [id number] Quality ID # [id number]: Final reports with documentation of one or more dose reduction techniques (e.g., Au tomated exposure control, adjustment of the mA and/or kV according to patient size, use of iterative reconstruction technique) 2010 [employer]- All Rights Reserved Reading location - IP/workstation name: [email or web address]
[2020-04-16 15:37] VITALS: BP 101/54
== END 2020-04-16 15:37 | disposition home or self-care (01) ==
LOC: ER 06:55
DX: K51.30 Ulcerative (chronic) rectosigmoiditis without complications (principal); K59.00 Constipation, unspecified; R19.7 Diarrhea, unspecified; E78.00 Pure hypercholesterolemia, unspecified; I25.10 Atherosclerotic heart disease of native coronary artery without angina pectoris; I10 Essential (primary) hypertension; I25.2 Old myocardial infarction; E11.9 Type 2 diabetes mellitus without complications; Z79.84 Long term (current) use of oral hypoglycemic drugs; Z79.899 Other long term (current) drug therapy; Z95.5 Presence of coronary angioplasty implant and graft; Z95.0 Presence of cardiac pacemaker; Z87.891 Personal history of nicotine dependence; Z88.0 Allergy status to penicillin; Z88.2 Allergy status to sulfonamides
CPT/HCPCS: 36415; 74018; 74177; 80053; 81001; 83690; 85025; 99285